=== PATIENT | male | born 1950 | race African-American/Black ===

== ENCOUNTER 2021-11-23 22:02 | Emergency (ER) | payer OTHER ==
[~2021-11-23] VITALS: Ht 177.8 cm; Wt 90.7 kg
[2021-11-23] MEDS ORDERED: ATORVASTATIN (22:19)
[2021-11-23] MEDS ORDERED: ZESTRIL5 MG (22:19)
[2021-11-24] MEDS ORDERED: DOLOGESIC 500-1 EACH PO (02:03)
== END 2021-11-24 02:12 ==
LOC: ER 22:02
DX: B34.9 Viral infection, unspecified (principal); Z20.822 Contact with and (suspected) exposure to COVID-19